=== PATIENT | male | born 1945 | race Caucasian/White ===

== ENCOUNTER → 2019-06-12 09:03 | Outpatient (CLI) | payer MEDICARE, MEDICAID, SELFPAY ==
--- NOTE | 2019-06-12 | DI.CT.S_ITS ---
PROCEDURE: CT CHEST ABD PEL W CON INDICATIONS: PROSTATE CANCER TECHNIQUE: After the administration of oral and intravenous contrast, 5 mm thick sections acquired from the lung apices to the symphysis. 5 mm coronal and sagittal reformats were performed, with additional 7 mm coronal MIP reformats through the lungs. For radiation dose reduction, the following was used: automated exposure control, adjustment of mA and/or kV according to patient size. COMPARISON: None. FINDINGS: Image quality: Excellent. CHEST: Lungs and pleura: Solid irregular 7 mm pleural-based nodule in the right lateral costophrenic sulcus. No dense airspace consolidations. Minimal fibrotic changes in the lateral and posterior costophrenic sulci. No pleural effusions or pneumothorax. Central and peripheral airways appear patent and normal in caliber. Mediastinum: Heart size is normal. No pericardial effusion. No mediastinal or hilar adenopathy by size criteria. Thoracic aorta and central pulmonary arteries are normal in size. Esophagus is normal in caliber. No hiatal hernia. Chest wall: No axillary or supraclavicular adenopathy by size criteria. Thyroid gland is normal. ABDOMEN: Solid organs: Liver is normal in size and enhancement. The few scattered small cystic structures in the right lobe of the liver too small to accurately characterize. Gallbladder appears normal. Biliary system is non dilated. Pancreas enhances normally. Spleen is normal in size and enhancement. No adrenal nodules. Kidneys demonstrate normal size and enhancement, without hydronephrosis. Exophytic cystic structures are present in each kidney. Peritoneum and bowel: Bowel loops demonstrate normal wall thickness and caliber. Sigmoid diverticulosis. Normal appendix. No free fluid or air. Nodes and vessels: No retroperitoneal or mesenteric adenopathy by size criteria. Aorta and inferior vena cava are normal in size. Moderate to heavy mixed calcified and noncalcified atherosclerosis, particularly at the common iliac bifurcation and at the renal artery origins. Miscellaneous: No ventral hernias. PELVIS: Genitourinary: Urinary bladder is decompressed.. Normal to diminutive sized prostate gland. Miscellaneous: No inguinal hernias or adenopathy. Bones: No suspicious bony lesions. Moderate degenerative changes in the hip joints, hypertrophic spurring throughout the lumbar spine and in the lower thoracic spine and partial ankylosis of the right sacroiliac joint. No vertebral body compression fractures. IMPRESSION: 1. Nonspecific irregular solid nodule the right costophrenic sulcus. This may be scarring, atelectasis, less likely metastatic disease. The followup chest CT in 3 months is recommended. This lesion is not accessible for percutaneous biopsy. 2. No adenopathy in the chest, abdomen, or pelvis. 3. Normal to diminutive size prostate gland. 4. Heavy systemic atherosclerotic calcification. This includes common iliac bifurcation and renal arteries. Dictated by: Windy Carroll M.D. on 06/12/2019 at 14:50 Approved by: Windy Carroll M.D. on 06/12/2019 at 15:07
--- NOTE | 2019-06-12 | DI.NM.S_ITS ---
PROCEDURE: NM BONE SCAN WHOLE BODY RADIOPHARMACEUTICAL: 20.5 mCi Tc-99m MDP IV. INDICATIONS: PROSTATE CANCER TECHNIQUE: Delayed whole-body scintigrams were obtained approximately 3-4 hours after intravenous injection of radiotracer. Anterior and posterior views were acquired from vertex to feet. Additional left and right oblique views of the lumbar spine and pelvis were obtained. COMPARISON: [facility], CT, CT CHEST ABD PEL W CON, 06/12/2019, 10:16. FINDINGS: Symmetric appearing moderate increased uptake in bilateral acromioclavicular joints are seen consistent with moderate osteophytic changes. Mildly increased radiotracer uptake in bilateral elbow joints, wrist joints, ankle and hindfoot joint are seen consistent with osteophytic changes. Moderately increased tracer uptake throughout mid to lower cervical spine, thoracic spine and lumbar spine is seen most consistent with degenerative disc disease and facet arthrosis. Similar osteophytic changes in bilateral sacroiliac joints also seen. There is a focal area of mild to moderately increased uptake involving right posterior third rib. No discrete lesion is noted in this area on CT study from the same day. IMPRESSION: 1. Small focus of moderately increased uptake involving right posterior third rib, with no corresponding bony lesion seen on CT of the chest, abdomen and pelvis study from the same day. Early focal metastatic bone lesion cannot be entirely excluded. A followup study is recommended. 2. No other area of abnormal increased uptake to suggest bony metastasis. 3. 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 Suggestion of degenerative disc disease and bilateral facet arthrosis throughout cervical, thoracic and lumbar spine. Osteoarthritic changes in bilateral sacroiliac joints. Dictated by: Ky Drake M.D. on 06/12/2019 at 16:53 Approved by: Ky Drake M.D. on 06/12/2019 at 16:59
== END ==
PROVIDERS: Visit Provider Urology
DX: C61 Malignant neoplasm of prostate (principal); R91.1 Solitary pulmonary nodule; K57.30 Diverticulosis of large intestine without perforation or abscess without bleeding; I70.0 Atherosclerosis of aorta; M47.818 Spondylosis without myelopathy or radiculopathy, sacral and sacrococcygeal region
CPT/HCPCS: 71260; 74177; 78306; A9503; Q9967